=== PATIENT | male | born 1985 | race Caucasian/White ===

== ENCOUNTER 2017-03-19 13:32 | Emergency (ER) | payer OTHER ==
--- NOTE | 2017-03-19 15:38 | EDPHY ---
HPI/HX/ROS/PE/MDM Narrative: CHIEF COMPLAINT: Abdominal pain HPI: The patient is a 31-year-old male who complains of 1 week of abdominal pain. The patient returned yesterday from a two week trip travelling throughout [place]. While travelling the patient developed diffuse abdominal pain. He had diarrhea for two days, but states that has now subsided. He took three days of Cipro, which he received from his girlfriend, his last dose was yesterday. He states the Cipro slightly improved his pain. He went to urgent care for continued abdominal pain today and was found to have RLQ tenderness. Patient was sent here for CT imaging to rule out appendicitis. Patient denies fever or dysuria. Patient was eating and drinking differently throughout his travels. He was in [place] [facility], exposed to a variety of insects and animals. REVIEW OF SYSTEMS: Aside from elements discussed in the HPI, a comprehensive 10-point review of systems was reviewed and is negative. PMH: Denies. SOCIAL HISTORY: Lives in [place]. PHYSICAL EXAM: General: Patient is alert, in no acute distress. ENT: Eyes are normal to inspection. ENT inspection normal. Neck: Normal inspection. Full range of motion. Respiratory: No respiratory distress. Breath sounds normal bilaterally. Cardiovascular: Regular rate and rhythm. Strong peripheral pulses. Abdomen: Mild tenderness to palpation in the right lower quadrant. Back: Normal to inspection. No tenderness to palpation. Skin: Normal color. No rash. Warm and dry. Extremities: Normal appearance. Full range of motion. Neuro: Oriented x3. Normal motor function. Normal sensory function. ED Course: Plan to check lab work. CT abdomen/pelvis ordered. Stool culture ordered if patient is able to provide sample. CT is negative for appendicitis. 1735: I consulted Dr. Becker, with infectious disease, he will followup with the patient. Awaiting stool sample. Patient unable to provide stool sample. Abdomen benign, would like to go home. MDM: This patient presents with mild abdominal pain with some focus in the RLQ. Thankfully his CTAP is negative for appendicitis, bowel obstruction, bowel perforation, mass or kidney stone. I suspect his symptoms are likely related to food-borne illness picked up in [facility]. Patient unable to provide stool sample for PCR. I do not think empiric antibiotics are indicated. - Data Points Imaging: Discussed imaging studies w/ delivery recruiter Radiologist, I viewed and interpreted images myself Laboratory Results: Laboratory Results 03/19/17 16:08 03/19/17 16:08 03/19/17 03/19/17 03/19/17 17:31 16:08 16:08 WBC RBC Hgb POC Hgb 15.6 gm/dL gm/dL (13.7-17.5) Hct POC Hct 46 % % (40-51) MCV MCH MCHC RDW Plt Count MPV Neut % (Auto) Lymph % (Auto) [place] % (Auto) Eos % (Auto) Baso % (Auto) Nucleat RBC Rel Count Absolute Neuts (auto) Absolute Lymphs (auto) Absolute Monos (auto) Absolute Eos (auto) Absolute Basos (auto) Absolute Nucleated RBC Immature Gran % Immature Gran # POC Sodium 142 mEq/L mEq/L (134-144) Sodium 141 mEq/L mEq/L (134-144) POC Potassium 3.4 mEq/L mEq/L (3.3-5.0) Potassium 3.7 mEq/L mEq/L (3.5-5.2) POC Chloride 98 mEq/L mEq/L (97-110) Chloride 101 mEq/L mEq/L (97-110) Carbon Dioxide 26 mEq/l mEq/l (22-31) Anion Gap 14 mEq/L mEq/L (8-16) POC BUN 14 mg/dL mg/dL (7-23) BUN 14 mg/dL mg/dL (7-23) Creatinine 1.2 mg/dL mg/dL (0.7-1.3) POC Creatinine 1.3 mg/dL mg/dL (0.7-1.3) Estimated GFR > 60 Glucose 79 mg/dL mg/dL (70-100) POC Glucose 81 mg/dL mg/dL (70-100) Calcium 10.0 mg/dL mg/dL (8.5-10.4) Total Bilirubin 1.1 mg/dL mg/dL (0.1-1.4) Conjugated Bilirubin 0.2 mg/dL mg/dL (0.0-0.5) Unconjugated Bilirubin 0.9 mg/dL mg/dL (0.0-1.1) AST 18 IU/L IU/L (17-59) ALT 31 IU/L IU/L (21-72) Alkaline Phosphatase 72 IU/L IU/L (38-126) Total Protein 8.0 g/dL g/dL (6.3-8.2) Albumin 4.7 g/dL g/dL (3.5-5.0) Urine Color YELLOW Urine Appearance CLEAR Urine pH 5.0 (5.0-7.5) Ur Specific [place] > 1.035 H (1.002-1.030) Urine Protein NEGATIVE (NEGATIVE) Urine Ketones NEGATIVE (NEGATIVE) Urine Blood NEGATIVE (NEGATIVE) Urine Nitrate NEGATIVE (NEGATIVE) Urine Bilirubin NEGATIVE (NEGATIVE) Urine Urobilinogen NEGATIVE EU EU (0.2-1.0) Ur Leukocyte Esterase NEGATIVE (NEGATIVE) Urine Glucose NEGATIVE (NEGATIVE) 03/19/17 16:08 WBC 5.24 10^3/uL 10^3/uL (3.80-9.50) RBC 5.04 10^6/uL 10^6/uL (4.40-6.38) Hgb 15.6 g/dL g/dL (13.7-17.5) POC Hgb Hct 45.9 % % (40.0-51.0) POC Hct MCV 91.1 fL fL (81.5-99.8) MCH 31.0 pg pg (27.9-34.1) MCHC 34.0 g/dL g/dL (32.4-36.7) RDW 11.3 % L % (11.5-15.2) Plt Count 207 10^3/uL 10^3/uL (150-400) MPV 10.9 fL fL (8.7-11.7) Neut % (Auto) 45.6 % % (39.3-74.2) Lymph % (Auto) 43.7 % % (15.0-45.0) [place] % (Auto) 7.1 % % (4.5-13.0) Eos % (Auto) 2.3 % % (0.6-7.6) Baso % (Auto) 1.1 % % (0.3-1.7) Nucleat RBC Rel Count 0.0 % % (0.0-0.2) Absolute Neuts (auto) 2.39 10^3/uL 10^3/uL (1.70-6.50) Absolute Lymphs (auto) 2.29 10^3/uL 10^3/uL (1.00-3.00) Absolute Monos (auto) 0.37 10^3/uL 10^3/uL (0.30-0.80) Absolute Eos (auto) 0.12 10^3/uL 10^3/uL (0.03-0.40) Absolute Basos (auto) 0.06 10^3/uL 10^3/uL (0.02-0.10) Absolute Nucleated RBC 0.00 10^3/uL 10^3/uL (0-0.01) Immature Gran % 0.2 % % (0.0-1.1) Immature Gran # 0.01 10^3/uL 10^3/uL (0.00-0.10) POC Sodium Sodium POC Potassium Potassium POC Chloride Chloride Carbon Dioxide Anion Gap POC BUN BUN Creatinine POC Creatinine Estimated GFR Glucose POC Glucose Calcium Total Bilirubin Conjugated Bilirubin Unconjugated Bilirubin AST ALT Alkaline Phosphatase Total Protein Albumin Urine Color Urine Appearance Urine pH Ur Specific [place] Urine Protein Urine Ketones Urine Blood Urine Nitrate Urine Bilirubin Urine Urobilinogen Ur Leukocyte Esterase Urine Glucose Medications Given: Discontinued Medications Sodium Chloride (Ns) 1,000 mls @ 0 mls/hr IV EDNOW ONE; Wide Open PRN Reason: Protocol Stop: 03/19/17 15:48 Last Admin: 03/19/17 16:26 Dose: 1,000 mls Point of Care Test Results: 03/19/17 16:08 POC Sodium 142 POC Potassium 3.4 POC Chloride 98 POC BUN 14 POC Creatinine 1.3 POC Glucose 81 General Time Seen by Provider: 03/19/17 15:38 Initial Vital Signs: Initial Vital Signs Temperature (C) 36.9 C 03/19/17 14:02 Heart Rate 58 L 03/19/17 14:02 Respiratory Rate 14 03/19/17 14:02 Blood Pressure 126/77 H 03/19/17 14:02 O2 Sat (%) 96 03/19/17 14:02 O2 Delivery Mode Room Air Allergies/Adverse Reactions: No Known Allergies Allergy (Unverified 09/14/10 21:31) Home Medications: Medication Instructions Recorded NO HOME MEDS 09/14/10 Ciprofloxacin 03/19/17 Departure - Departure Disposition: Home, Routine, Self-Care Clinical Impression: Abdominal pain, Diarrhea Condition: Good Instructions: Acute Diarrhea (ED), Abdominal Pain (ED) Additional Instructions: Please followup with Dr. Becker, Infectious Disease within a week. Return to the Emergency Department with severe abdominal pain, vomiting, diarrhea, or worsening symptoms. Referrals: Sg Becker MD [Medical Doctor] - 5-7 days, if not improved (Infectious Disease ) Report Scribed for: Juan Pulliam Report Scribed by: Petty Oliver Date of Report: 03/19/17 Time of Report: 16:05 Physician Review and Approval Statement: Portions of this note were transcribed by a medical malpractice paralegal. I personally performed the history, physical exam, and medical decision-making; and confirmed the accuracy of the information in the transcribed note.
[2017-03-19] MEDS ORDERED: NS 1,000 ML IV ONE (15:47)
[2017-03-19 16:23] LABS: % IMMATURE GRANULYOCYTES 0.2 % (0.0-1.1); ABSOLUTE IMMATURE GRANULOCYTES 0.01 10^3/uL (0.00-0.10); ADD DIFF? NO; ADD MORPH? NO; ADD SCAN? NO; ATYPICAL LYMPHOCYTE FLAG 90 (0-99); FRAGMENT RBC FLAG 0 (0-99); HEMATOCRIT 45.9 % (40.0-51.0); HEMOGLOBIN 15.6 g/dL (13.7-17.5); LEFT SHIFT FLG 0 (0-99); LIPEMIA HEMOLYSIS FLAG 90 (0-99); MEAN CELL VOLUME 91.1 fL (81.5-99.8); MEAN PLATELET VOLUME 10.9 fL (8.7-11.7); PLATELET CLUMPS FLAG 0 (0-99); PLATELET COUNT 207 10^3/uL (150-400); RED BLOOD CELL COUNT 5.04 10^6/uL (4.40-6.38); RED CELL DISTRIBUTION WIDTH 11.3 % (11.5-15.2)
[2017-03-19 16:35] LABS: ALANINE AMINOTRANSFERASE 31 IU/L (21-72); ALBUMIN 4.7 g/dL (3.5-5.0); ALKALINE PHOSPHATASE 72 IU/L (38-126); ANION GAP 14 mEq/L (8-16); ASPARTATE AMINOTRANSFERASE 18 IU/L (17-59); BILIRUBIN,TOTAL 1.1 mg/dL (0.1-1.4); BILIRUBIN-CONJUGATED 0.2 mg/dL (0.0-0.5); BILIRUBIN-UNCONJUGATED 0.9 mg/dL (0.0-1.1); CARBON DIOXIDE 26 mEq/l (22-31); CHLORIDE 101 mEq/L (97-110); CREATININE 1.2 mg/dL (0.7-1.3); GLOMERULAR FILTRATION RATE > 60; GLUCOSE 79 mg/dL (70-100); POTASSIUM 3.7 mEq/L (3.5-5.2); SODIUM 141 mEq/L (134-144)
[2017-03-19] MEDS ORDERED: IOPAMIDOL (ISOVUE-300) 100 ML BTL ONE (16:44)
[2017-03-19 17:38] VITALS: RESP 16
[2017-03-19 17:53] LABS: COLOR YELLOW; LEUKOCYTE ESTERASE,URINE NEGATIVE (NEGATIVE); NITRITE,URINE NEGATIVE (NEGATIVE)
[2017-03-19 18:49] VITALS: BP 132/77; PULSE 65; TEMP 98.1; O2SAT 96
== END 2017-03-19 18:49 | disposition home or self-care (01) ==
DX: R10.31 Right lower quadrant pain (principal); R19.7 Diarrhea, unspecified; E86.9 Volume depletion, unspecified
CPT/HCPCS: 82947-QW; Q9967